=== PATIENT | female | born 1950 | race Caucasian/White ===

== ENCOUNTER 2021-02-17 11:14 | Outpatient (REF) | payer MEDICARE, SELFPAY ==
--- NOTE | ~2021-02-17 | MM_ITS ---
EXAMINATION: MM SCREENING DIGITAL BREAST TOMOSYNTHESIS, BILATERAL CLINICAL INFORMATION: Screening. Asymptomatic. Prior history reduction mammoplasty, 2006. The lifetime risk of breast cancer based on the Tyrer-Cuzick Model is 4%. COMPARISON: Mammography: 01/11/2020, 11/21/2018, 11/12/2017 TECHNIQUE: Digital breast tomosynthesis is performed in both the craniocaudal and mediolateral oblique views along with computer-aided detection (CAD). Synthesized 2D images are generated from the tomosynthesis. FINDINGS: There are scattered areas of fibroglandular density (ACR BI-RADS breast composition Category b). There are no significant masses, abnormal calcifications, or other abnormalities. Background stromal and fibroglandular densities are stable. There there is minor stable scarring and scattered bilateral benign round and predominantly dermal calcifications consistent with the reduction mammoplasty. MM/MM tomosynthesis screening BI IMPRESSION: No mammographic evidence of malignancy. ASSESSMENT: BI-RADS 2: Benign RECOMMENDATION: Routine annual mammography screening. This patient's information was entered into a reminder system with a target due date for their next mammogram.
== END 2021-02-17 11:15 | disposition home or self-care (01) ==
LOC: HO.MAMMO 11:14
PROVIDERS: PCP Internal Medicine; Visit Provider Internal Medicine
DX: Z12.31 Encounter for screening mammogram for malignant neoplasm of breast (principal)
CPT/HCPCS: 77063; 77067

== ENCOUNTER 2022-02-19 10:56 | Outpatient (REF) | payer MEDICARE, SELFPAY ==
--- NOTE | ~2022-02-19 | MM_ITS ---
EXAMINATION: MM SCREENING DIGITAL BREAST TOMOSYNTHESIS, BILATERAL CLINICAL INFORMATION: Screening. Asymptomatic. Prior reduction mammoplasty, 2006. COMPARISON: Mammography: 02/17/2021, 01/11/2020, 11/21/2018 TECHNIQUE: Digital breast tomosynthesis is performed in both the craniocaudal and mediolateral oblique views along with computer-aided detection (CAD). Synthesized 2D images are generated from the tomosynthesis. FINDINGS: There are scattered areas of fibroglandular density (ACR BI-RADS breast composition Category b). There are no significant masses, abnormal calcifications, or other abnormalities. There are numerous fine round, rim, predominantly dermal calcifications again seen along with minor scarring consistent with the prior reduction mammoplasty. There is no developing density or architectural abnormality or significant changes. MM/MM tomosynthesis screening BI IMPRESSION: No mammographic evidence of malignancy. ASSESSMENT: BI-RADS 2: Benign RECOMMENDATION: Routine annual mammography screening. This patient's information was entered into a reminder system with a target due date for their next mammogram.
== END 2022-02-19 10:57 | disposition home or self-care (01) ==
LOC: HO.MAMMO 10:56
PROVIDERS: PCP Internal Medicine; Visit Provider Internal Medicine
DX: Z12.31 Encounter for screening mammogram for malignant neoplasm of breast (principal)
CPT/HCPCS: 77063; 77067

== ENCOUNTER 2022-03-27 10:13 | Day surgery (SDC) | payer MEDICARE, SELFPAY ==
--- NOTE | 2022-03-26 14:12 | HO.ANESPROP2 ---
Documented by User: Rosemarie Tate NP 03/26/22 14:13 HPI - Anesthesia Eval Consult details Narrative: 72yo F for Colonoscopy anaphylaxis to procaine PMFSH Past Medical History Medical History Hx of cyst of breast Hypertension Sleep apnea Surgical History Surgical History History of bunionectomy History of colon resection History of gastric surgery Hx of bilateral breast reduction surgery Hx of colonoscopy Hx of hysterectomy Hx of rotator cuff surgery Social History Social History Patient Tobacco Use Status: Former Tobacco user Quit Date: 1985 Tobacco use type: Cigarette Cigarette Packs Per Day: 3.5 Cigarettes Per Day: 70.0 Years Smoked: 15 Smoked in Last 30 Days: No Use of substances other than those prescribed or required for medical reasons: No Are you DNR?: No Advance Directives: No Advance Directives Information Provided: Yes Meds Allergies Allergy/AdvReac Type Severity Reaction Status Date / Time epinephrine [Epinephrine] Allergy Mild THROAT Unverified 03/27/22 10:24 CLOSES Iodinated Contrast Media Allergy Mild SWELLING Unverified 03/27/22 10:24 [IV Dye, Iodine Containing] procaine [From Novocain] Allergy Mild THROAT Unverified 03/27/22 10:24 CLOSES celery [CELERY] Allergy Unknown THROAT Unverified 03/27/22 10:24 CLOSES FRESH FRUIT Allergy Unknown THROAT Uncoded 03/27/22 10:25 CLOSES iodine Allergy Unknown Swelling Uncoded 03/27/22 10:24 Home Medications Medication Instructions Recorded Confirmed Last Taken Type Vitamin D3 1,000 units PO Q OTHER DAY 03/26/22 03/27/22 Unknown History lisinopril 5 mg tablet 1 tab PO DAILY 03/26/22 03/27/22 03/27/22 01:00 History multivitamin with minerals 1 tab PO DAILY 03/26/22 03/27/22 Unknown History Exam Exam Date and Time: March 26, 2022 141 Assessment and Plan Assessment Anesthesia Assessment: Chart Reviewed Documented by User: Aldo Fisher MD 03/27/22 11:31 [facility] Past Medical History Medical History Hx of cyst of breast Hypertension Sleep apnea Family History Family history of problems with anesthesia: No Surgical History Surgical History History of bunionectomy History of colon resection History of gastric surgery Hx of bilateral breast reduction surgery Hx of colonoscopy Hx of hysterectomy Hx of rotator cuff surgery History of Problems with Anesthesia: No Social History Social History Patient Tobacco Use Status: Former Tobacco user Quit Date: 1985 Tobacco use type: Cigarette Cigarette Packs Per Day: 3.5 Cigarettes Per Day: 70.0 Years Smoked: 15 Smoked in Last 30 Days: No Use of substances other than those prescribed or required for medical reasons: No Are you DNR?: No Advance Directives: No Advance Directives Information Provided: Yes Meds Allergies Allergy/AdvReac Type Severity Reaction Status Date / Time epinephrine [Epinephrine] Allergy Mild THROAT Unverified 03/27/22 10:24 CLOSES Iodinated Contrast Media Allergy Mild SWELLING Unverified 03/27/22 10:24 [IV Dye, Iodine Containing] procaine [From Novocain] Allergy Mild THROAT Unverified 03/27/22 10:24 CLOSES celery [CELERY] Allergy Unknown THROAT Unverified 03/27/22 10:24 CLOSES FRESH FRUIT Allergy Unknown THROAT Uncoded 03/27/22 10:25 CLOSES iodine Allergy Unknown Swelling Uncoded 03/27/22 10:24 Home Medications Medication Instructions Recorded Confirmed Last Taken Type Vitamin D3 1,000 units PO Q OTHER DAY 03/26/22 03/27/22 Unknown History lisinopril 5 mg tablet 1 tab PO DAILY 03/26/22 03/27/22 03/27/22 01:00 History multivitamin with minerals 1 tab PO DAILY 03/26/22 03/27/22 Unknown History Exam Airway Mallampati Class: II TM Dist: >3cm Neck ROM: Full Loose/Missing/Broken Teeth: No Heart: [id number] Lungs: cta b/l Assessment and Plan Assessment Anesthesia Assessment: Anesthesia Plan Discussed Final Anesthetic Review Family History of Problems with Anesthesia: No History of Problems with Anesthesia: No NPO: Yes ASA Class: II Final Preanesthetic Review: No Changes in Pt Med Stat, Meds/Allgs Chart Reviewed, Consent Obtained/Reviewed and Anes Risks/Benef Reviewed Patient Risk: Intermediate Procedure Risk: Intermediate Assessment/Block/Sedation in SS: Assess/Block/Sedation-SS Anesthetic Plan Anesthetic Plan: MAC: and Agree w/ Assess. and Plan Disposition: Standard PACU
[2022-03-27 10:27] VITALS: BMI 35.2
[2022-03-27 10:35] VITALS: BP 137/85; PULSE 113; RESP 16; TEMP 36.5; O2SAT 96
[2022-03-27] MEDS: Lactated Ringers 1,000 ML 100 ML IVCONT (10:51)
[2022-03-27 12:16] VITALS: BP 111/62; PULSE 89; RESP 18; TEMP 36.9; O2SAT 95
--- NOTE | 2022-03-27 12:18 | P.BOP_ITS ---
Brief Operative Note Date of Service: 03/27/22 Pre-op diagnosis: Screening Post-op diagnosis: other (Polyps) Procedure: Colonoscopy to the anastomosis and small bowel with hot snare polypectomy x 2. Surgeon: Mervin Root Anesthesia: MAC Was an [employer] Manager used for this Procedure?: No Estimated blood loss (mL): 0 Pathology: other (A. Polyp at 20cm B. Distal rectal polyp) Condition: stable Disposition: PACU
[2022-03-27 12:34] VITALS: BP 120/80; PULSE 79; RESP 18; TEMP 36.7; O2SAT 96
--- NOTE | 2022-03-27 22:49 | OP_ITS ---
SURGEON: Mervin Root MD INDICATIONS: The patient presents for followup of personal history of colon polyps and need for colorectal cancer screening. Full consent has been obtained from her for that, including risks of bleeding and perforation. PREOPERATIVE DIAGNOSIS: Colorectal cancer screening and personal history of colon polyps. POSTOPERATIVE DIAGNOSIS: PROCEDURE PERFORMED: Colonoscopy to the anastomosis and small bowel with hot snare polypectomy x 2. ESTIMATED BLOOD LOSS: COMPLICATIONS: ANESTHESIA: Monitored anesthesia care. ASSISTANTS: SPECIMENS: POSTOPERATIVE DIAGNOSES: Colorectal cancer screening and personal history of colon polyps, colon polyps, diverticulosis, normal anastomosis, internal hemorrhoids. DESCRIPTION OF PROCEDURE: The patient was placed in the left lateral decubitus position. The digital rectal exam revealed no abnormalities. The Olympus video pediatric colonoscope was entered into the rectum and advanced easily to the level of the anastomosis. The anastomosis was well visualized and appeared normal and widely patent. The small bowel mucosa was normal. The small bowel was cannulated for least 5 or 10 cm and appeared normal. The scope was withdrawn back in the colon. The scope was then slowly withdrawn assessing all mucosal surfaces carefully. Preparation was excellent. At 20 cm in the area of diverticula was what appeared to be a probable inflammatory polyp. This was approximately 10 to 12 mm in diameter and was somewhat friable. It was removed by hot snare polypectomy and recovered by suction. The polypectomy site appeared clean, without any sign of residual polyp nor bleeding. There was a mild to moderate amount of sigmoid diverticulosis. I did not visualize any sign of colitis nor angiodysplasia. In the distal rectum, seen in the forward viewing position, was an approximately 5 mm polyp which was removed by hot snare polypectomy and then recovered by suction. The polypectomy site appeared clean, without any sign of residual polyp nor bleeding. In the rectum, scope was retroflexed visualizing internal hemorrhoids as well. The scope was straightened and withdrawn from the patient. She tolerated the procedure well and was returned to the recovery area in stable condition. IMPRESSION: 1. Colon polyps. 2. Diverticulosis. 3. Internal hemorrhoids. 4. Normal anastomosis. PLAN: The results of the pathology will be checked. I would recommend a repeat colonoscopy in 3 years for further surveillance. She was advised not to use any aspirin or NSAIDs for 1 week. MD LISSY Silva/CHRISTINA / [id number] MATT
== END 2022-03-27 13:01 | disposition home or self-care (01) ==
PROVIDERS: PCP Internal Medicine; Visit Provider Internal Medicine
PROC: 0DJD8ZZ Inspection of Lower Intestinal Tract, Via Natural or Artificial Opening Endoscopic (ICD-10-PCS; CPT 45378; principal; 2022-03-27 11:20)
DX: Z12.11 Encounter for screening for malignant neoplasm of colon (principal); K63.5 Polyp of colon; K62.1 Rectal polyp; K57.30 Diverticulosis of large intestine without perforation or abscess without bleeding; K64.8 Other hemorrhoids; Z86.010 Personal history of colon polyps; I10 Essential (primary) hypertension; Z79.899 Other long term (current) drug therapy; Z98.0 Intestinal bypass and anastomosis status
CPT/HCPCS: 45385; 88305

== ENCOUNTER → 2023-02-25 11:15 | Outpatient (BNV) | payer MEDICARE, SELFPAY | PROVIDERS: PCP Internal Medicine; Visit Provider Radiology Diagnostic Radiology | DX: Z12.31 Encounter for screening mammogram for malignant neoplasm of breast (principal) | CPT/HCPCS: 77063; 77067 ==

== ENCOUNTER 2023-02-25 11:31 | Outpatient (REF) | payer MEDICARE, SELFPAY ==
--- NOTE | ~2023-02-25 | MM_ITS ---
EXAMINATION: MM SCREENING DIGITAL BREAST TOMOSYNTHESIS, BILATERAL CLINICAL INFORMATION: Screening. Asymptomatic. The patient is status post breast reduction. COMPARISON: Mammography: This study is compared with prior exams dating back to 2018. TECHNIQUE: Digital breast tomosynthesis is performed in both the craniocaudal and mediolateral oblique views along with computer-aided detection (CAD). Synthesized 2D images are generated from the tomosynthesis. FINDINGS: There are scattered areas of fibroglandular density (ACR BI-RADS breast composition Category b). There are no significant masses, abnormal calcifications, or other abnormalities. Post reduction changes are present in each breast. MM/MM tomosynthesis screening BI IMPRESSION: No mammographic evidence of malignancy. ASSESSMENT: BI-RADS BI-RADS 2 - Benign Findings RECOMMENDATION: Routine annual mammography screening. 1 year F/U This examination should not preclude the clinical evaluation of a suspicious palpable abnormality. This patient's information was entered into a reminder system with a target due date for their next mammogram.
== END 2023-02-25 11:32 | disposition home or self-care (01) ==
LOC: HO.MAMMO 11:31
PROVIDERS: PCP Internal Medicine; Visit Provider Internal Medicine
DX: Z12.31 Encounter for screening mammogram for malignant neoplasm of breast (principal)
CPT/HCPCS: 77063; 77067

== ENCOUNTER 2024-03-02 10:14 | Outpatient (REF) | payer MEDICARE, SELFPAY ==
--- NOTE | ~2024-03-02 | MM_ITS ---
EXAMINATION: MM SCREENING DIGITAL BREAST TOMOSYNTHESIS, BILATERAL CLINICAL INFORMATION: Screening. Asymptomatic. COMPARISON: Mammography: Comparison is made with available priors TECHNIQUE: Digital breast mammography with tomosynthesis is performed in both the craniocaudal and mediolateral oblique views along with computer-aided detection (CAD). FINDINGS: There are scattered areas of fibroglandular density (ACR BI-RADS breast composition Category b). Bilateral reduction mammoplasty. There are no significant masses, abnormal calcifications, or other abnormalities. MM/MM tomosynthesis screening BI IMPRESSION: No mammographic evidence of malignancy. ASSESSMENT: BI-RADS BI-RADS 2 - Benign Findings RECOMMENDATION: Routine annual mammography screening. 1 year F/U This examination should not preclude the clinical evaluation of a suspicious palpable abnormality. This patient's information was entered into a reminder system with a target due date for their next mammogram. Electronically signed by: Brandee Aaron DO 03/10/2024 10:45 AM [facility]
== END 2024-03-02 10:15 | disposition home or self-care (01) ==
LOC: HO.MAMMO 10:14
PROVIDERS: PCP Internal Medicine; Visit Provider Internal Medicine
DX: Z12.31 Encounter for screening mammogram for malignant neoplasm of breast (principal)
CPT/HCPCS: 77063; 77067

== ENCOUNTER → 2024-03-02 10:30 | Outpatient (BNV) | payer MEDICARE, SELFPAY | PROVIDERS: PCP Internal Medicine; Visit Provider Internal Medicine | DX: Z12.31 Encounter for screening mammogram for malignant neoplasm of breast (principal) | CPT/HCPCS: 77063; 77067 ==

== ENCOUNTER 2025-03-08 10:33 | Outpatient (REF) | payer MEDICARE, SELFPAY ==
--- NOTE | ~2025-03-08 | MM_ITS ---
EXAMINATION: MM SCREENING DIGITAL BREAST TOMOSYNTHESIS, BILATERAL CLINICAL INFORMATION: Screening. Asymptomatic. COMPARISON: Mammography: Comparison is made with available priors TECHNIQUE: Digital breast mammography with tomosynthesis is performed in both the craniocaudal and mediolateral oblique views along with computer-aided detection (CAD). FINDINGS: There are scattered areas of fibroglandular density. Bilateral reduction mammoplasty. There are no significant masses, abnormal calcifications, or other abnormalities. MM/MM tomosynthesis screening BI IMPRESSION: No mammographic evidence of malignancy. ASSESSMENT: BI-RADS Category 2: Benign RECOMMENDATION: Routine annual mammography screening. 1 year F/U This examination should not preclude the clinical evaluation of a suspicious palpable abnormality. This patient's information was entered into a reminder system with a target due date for their next mammogram. Electronically signed by: Brandee Aaron DO 03/08/2025 11:29 AM [facility]
== END 2025-03-08 10:34 | disposition home or self-care (01) ==
LOC: HO.MAMMO 10:33
PROVIDERS: PCP Internal Medicine; Visit Provider Internal Medicine
DX: Z12.31 Encounter for screening mammogram for malignant neoplasm of breast (principal)
CPT/HCPCS: 77063; 77067

== ENCOUNTER → 2025-03-08 10:45 | Outpatient (BNV) | payer MEDICARE, SELFPAY | PROVIDERS: PCP Internal Medicine; Visit Provider Internal Medicine | DX: Z12.31 Encounter for screening mammogram for malignant neoplasm of breast (principal) | CPT/HCPCS: 77063; 77067 ==